=== PATIENT | female | born 1990 | race Two or more races ===

== ENCOUNTER 2023-08-20 20:16 | Emergency (ER) | payer OTHER, SELFPAY ==
[2023-08-20 20:33] VITALS: BP 131/70; PULSE 72; RESP 18; TEMP 36.6; O2SAT 99; BMI 26.6
[2023-08-20 20:53] LABS: MANUAL DIFF FLAG NO
[2023-08-20 20:59] LABS: UPreg QC Valid YES; Urine Pregnancy NEGATIVE (NEGATIVE)
[2023-08-20 21:07] LABS: Alanine Aminotransferase 8 U/L (0-31); Albumin Level 4.2 g/dL (3.5-5.0); Alkaline Phosphatase 47 U/L (39-117); Anion Gap 14 (12-20); Aspartate Amino Transferase 14 U/L (5-31); Bilirubin Total 0.7 mg/dL (0.0-1.0); Blood Urea Nitrogen 9 mg/dL (9-16); Calcium 9.4 mg/dL (8.4-10.2); Carbon Dioxide 25 mmol/L (22-29); Chloride 108 mmol/L (96-108); Creatinine Clr Calc Pharmacy 130.8; Estimated Glomerular Filt Rate > 60; Glucose Random 76 mg/dL (60-115); Potassium 3.6 mmol/L (3.3-5.1); Sodium 143 mmol/L (135-145); Total Protein 7.1 g/dL (6.5-8.0)
[2023-08-20 21:26] LABS: Appearance Urine Turbid; Color Urine Dark Yellow; Glucose Urine UA Negative (Negative); Leukocyte Esterase Urine Small (1+) (Negative); Nitrite Urine Negative (Negative); PH 6.5 (5.0-9.0); Specific Gravity - Urine >= 1.030 (1.005-1.025); UMIC TRIGGER UACC YES; Urine Blood Trace (Negative); Urine Ketones Trace mg/dL (Negative); Urine Protein Trace mg/dL (Neg-Trace)
[2023-08-20 21:32] LABS: Basophils Absolute Auto 0.1 X10*3/uL (0.0-0.2); Basophils Percent Auto 0.5 % (0-2); Eosinophils Absolute Auto 0.1 X10*3/uL (0.0-0.4); Eosinophils Percent Auto 0.8 % (0-4); Hematocrit 39.1 % (37.0-47.0); Hemoglobin 12.8 g/dl (12.0-16.0); Imm Gran Abs Auto 0.01 X10*3/uL (0.00-0.03); Imm Gran Pct Auto 0.1 % (0.0-0.4); Lymphocytes Absolute Auto 3.5 X10*3/uL (1.2-4.9); Mean Corpuscular HGB Conc 32.7 g/dl (31.0-35.0); Mean Corpuscular Hemoglobin 27.3 pg (27.0-33.0); Mean Corpuscular Volume 83.4 fL (80.0-98.0); Mean Platelet Volume 9.1 fL (9.4-12.3); Monocytes Absolute Auto 0.6 X10*3/uL (0.1-1.2); Monocytes Percent Auto 5.7 % (2-11); Neutrophils Absolute Auto 5.5 x10*3/uL (2.0-8.3); Neutrophils Percent Auto 56.9 % (45-73); Platelet Count 307 X10*3/uL (160-400); Red Blood Count 4.69 X10*6/uL (4.20-5.50); Red Cell Distribution Width 14.4 % (11.0-16.0); White Blood Count 9.7 X10*3/uL (4.8-10.8)
[2023-08-20 21:52] LABS: Bacteria Urine 2+ (None Seen); Calcium Oxalate Crystals Urine Present; Hyaline Casts Urine 0-2 /LPF (0-2); UACC Culture Trigger YES
--- OUTSIDE RECORDS SUMMARY | 2023-08-20 22:26 | XMS_ITS | Continuity of Care Document ---
Author Name Unknown Organization [facility] e Medicine Address Unknown Care Team Providers Care Field Gauger Name Role Phone Not on Staff, PCP Primary Care Physician Unavail able [place] [facility] [place] 12/22/21 - 01/21/22 [facility] Reproductive Medicine Attending Physician: Leeann Ward Admitting Physician: AdmtrLeeann Referring Physician: Admtr, Ar8 Allergies, Adverse Reactions, Alerts Substance Reaction Severity Status Latex Active Medications ibuprofen 800 mg oral tablet 800 mg, 1, tablet, By Mouth, 3 times a day, # 30 supp, Refills 0, Tot. Refills 0, Maintenance, 05/11/19 23:49:28 EST, Route to Pharmacy Electronically, NCPDP_[id number], [facility] [address] [facility] Start Date: 05/11/19 Status: Ordered oxyCODONE 5 mg oral tablet 5 mg, 1, tablet, By Mouth, Every 6 hours, PRN, # 10 tablet, Refills 0, Tot. Refills 0, Maintenance,for pain, 05/11/19 23:49:19 EST, Route to Pharmacy Electronically, NCPDP_ID-[id number], [facility] - [address], Partial fill upon patient request Start Date: 05/11/19 Status: Ordered simethicone 80 mg oral tablet 1 tablet = 80 mg, Chew, 3 times a day after meals and bedtime, PRN for gas, # 40 tablet, 0 Refills,Maintenance, 05/11/19 23:49:28 EST, Tablet Start Date: 05/11/19 Status: Ordered Tylenol 325 mg oral tablet 325 mg, 1, tablet, By Mouth, Every 4 hours, PRN, # 30 tablet, Refills 0, Tot. Refills 0, Maintenance, for pain, 05/11/19 23:49:19 EST, Route to Pharmacy Electronically, NCPDP_[id number], [facility] - [address] [place] [address] Start Date: 05/11/19 Status: Ordered Tylenol Extra Strength 500 mg oral tablet 2 tablet = 1,000 mg, By Mouth, Every 6 hours, 0 Refills, Maintenance, 05/11/19 15:56:33 EST Start Date: 05/11/19 Status: Ordered Problem List Condition Effective Dates Status Health Status Inform ant Anxiety(Confirmed) Active Asthma(Confirmed) Active Bipolar affective disorder(Confirmed) Active Depression(Confirmed) Active Social History Social History Type Response Smoking Status Former smoker, quit more than 30 days ago entered on: 05/09/19 Sex
--- OUTSIDE RECORDS SUMMARY | 2023-08-20 22:26 | XMS_ITS | Continuity of Care Document ---
Author Name Unknown Organization [facility] e Medicine Address Unknown Care Team Providers Care Cash Accounting Clerk Name Role Phone Not on Staff, PCP Primary Care Physician Unavail able Encounter [facility] [place] Date(s): 09/23/21 - 01/21/22 [facility] Reproductive Medicine Attending Physician: Margaret Nguyen MD Referring Physician: Scotty YAP, Miguel A Esquivel Allergies, Adverse Reactions, Alerts Substance Reaction Severity Status Latex Active Medications ibuprofen 800 mg oral tablet 800 mg, 1, tablet, By Mouth, 3 times a day, # 30 supp, Refills 0, Tot. Refills 0, Maintenance, 05/11/19 23:49:28 EST, Route to Pharmacy Electronically, NCPDP_[id number], [facility] - [address] Start Date: 05/11/19 Status: Ordered oxyCODONE 5 mg oral tablet 5 mg, 1, tablet, By Mouth, Every 6 hours, PRN, # 10 tablet, Refills 0, Tot. Refills 0, Maintenance,for pain, 05/11/19 23:49:19 EST, Route to Pharmacy Electronically, NCPDP_ID-[id number], [facility] - [address], Partial fill upon patient request Start [...] 05/11/19 23:49:19 EST, Route to Pharmacy Electronically, NCPDP_[id number], [facility] [address] [facility] Start Date: 05/11/19 Status: Ordered Tylenol Extra [...]
--- OUTSIDE RECORDS SUMMARY | 2023-08-20 22:26 | XMS_ITS | Continuity of Care Document ---
Author Name Unknown Organization [facility] e Medicine Address Unknown Care Team Providers Care Kids Activities Coach Name Role Phone Not on Staff, PCP Primary Care Physician Unavail able [place] [facility] [place] 10/08/21 [facility] Reproductive Medicine Attending Physician: Margaret Nguyen MD Referring Physician: Miguel A Fajardo MD Allergies, Adverse Reactions, Alerts Substance Reaction Severity Status Latex Active Medications ibuprofen 800 mg oral tablet 800 mg, 1, tablet, By Mouth, 3 times a day, # 30 supp, Refills 0, Tot. Refills 0, Maintenance, 05/11/19 23:49:28 EST, Route to Pharmacy Electronically, NCPDP_ID-[id number], [facility] - [address] Start Date: 05/11/19 Status: Ordered oxyCODONE 5 mg oral tablet 5 mg, 1, tablet, By Mouth, Every 6 hours, PRN, # 10 tablet, Refills 0, Tot. Refills 0, Maintenance,for pain, 05/11/19 23:49:19 EST, Route to Pharmacy Electronically, NCPDP_ID-[id number], [facility] - [address], Partial fill upon patient request Start [...] 05/11/19 23:49:19 EST, Route to Pharmacy Electronically, NCPDP_ID-[id number], [facility] [address] [facility] Start Date: 05/11/19 Status: Ordered Tylenol [...]
--- OUTSIDE RECORDS SUMMARY | 2023-08-20 22:26 | XMS_ITS | Continuity of Care Document ---
Author Name Unknown Organization [facility] ter Address [address] [place] [address]- Care Team Providers Care Philosophy And Religion Instructor Name Role Phone Keyshawn Brown MD Primary Care Physician [place] [facility] [place](s): 07/23/19 - 07/30/[address] [address]- [facility] Attending Physician: Nayla Lara MD Allergies, Adverse Reactions, Alerts Substance Reaction Severity Status Latex Active Medications ibuprofen 800 mg oral tablet 800 mg, 1, tablet, By Mouth, 3 times a day, # 30 supp, Refills 0, Tot. Refills 0, Maintenance, 05/11/19 23:49:28 EST, Route to Pharmacy Electronically, NCPDP_[id number], [facility] [address] [facility] Start Date: 05/11/19 Status: Ordered oxyCODONE 5 mg oral tablet 5 mg, 1, tablet, By Mouth, Every 6 hours, PRN, # 10 tablet, Refills 0, Tot. Refills 0, Maintenance,for pain, 05/11/19 23:49:19 EST, Route to Pharmacy Electronically, NCPDP_ID-[id number], [facility] - [address] [place] [address] ST, Partial fill upon patient request Start [...] 05/11/19 23:49:19 EST, Route to Pharmacy Electronically, NCPDP_[id number], [facility] - [address] [place] [address] Start Date: 05/11/19 Status: Ordered Tylenol Extra [...]
--- OUTSIDE RECORDS SUMMARY | 2023-08-20 22:26 | XMS_ITS | Continuity of Care Document ---
Author Name Unknown Organization [facility] e Medicine Address [address] [place] [address]- Care Team Providers Care Silviculture Teacher Name Role Phone Nick YAP, Pedro Pena Primary Care Physician [id number] Date(s[facility] 10/25/22 - 01/24/23 [facility] Reproductive Medicine [address]th [address] [place] [address] Attending Physician: Not on Staff, Attending MD Referring Physician: Miguel A Fajardo MD Allergies, Adverse Reactions, Alerts Substance Reaction Severity Status Latex Active Medications ibuprofen 800 mg oral tablet 800 mg, 1, tablet, By Mouth, 3 times a day, # 30 supp, Refills 0, Tot. Refills 0, Maintenance, 05/11/19 23:49:28 EST, Route to Pharmacy Electronically, NCPDP_ID-[id number], [facility] - [address] Start Date: 05/11/19 Status: Ordered oxyCODONE 5 mg oral tablet 5 mg, 1, tablet, By Mouth, Every 6 hours, PRN, # 10 tablet, Refills 0, Tot. Refills 0, Maintenance,for pain, 05/11/19 23:49:19 EST, Route to Pharmacy Electronically, NCPDP_ID-[id number], [facility] - [address], Partial fill [...] 05/11/19 23:49:19 EST, Route to Pharmacy Electronically, NCPDP_[id number], [facility] [address] [facility] Start Date: 05/11/19 Status: Ordered Tylenol Extra Strength 500 mg oral tablet 2 tablet = 1,000 mg, By Mouth, Every 6 hours, 0 Refills, Maintenance, 05/11/19 15:56:33 EST Start Date: 05/11/19 Status: Ordered Problem List Condition Confirmation Course Effective Dates Status Health St atus Informant Anxiety Confirmed Active Asthma Confirmed Active Bipolar affective disorder Confirmed Active Depression Confirmed Active Social History Social History Type Response Smoking Status Former smoker, quit more than 30 days ago entered on: 05/09/19 Sex Patient Care team information Care Team Personnel Name: Pedro Romero MD Position: Reference Physician Member Role: PCP Address: Address: [address] [place] [address] [place], [place] [address] Name: Maria Del Rosario Skaggs RN Position: [facility] Nurse Member Role: Primary Care Nurse Care Team Related Persons Name: MARILEE PACHECO Address: home [address] [place] [address] Name: PRIYA IZAGUIRRE Address: home [address] [place] [address] Name: MATHEUS PEREZ Address: home [address] [place] [address]
--- OUTSIDE RECORDS SUMMARY | 2023-08-20 22:26 | XMS_ITS | Continuity of Care Document ---
Author Name Unknown Organization [facility] e Medicine Address [address] [facility] [address] [place] [address]- Care Team Providers Care Library Associate Name Role Phone Nick YAP, Pedro Pena Primary Care Physician [phone] [place] [facility] [place] - 01/24/23 [facility] Reproductive Medicine [address] [facility] [address] [place] [address] Attending Physician: Leeann Ward Admitting Physician: Leeann Ward Referring Physician: Leeann Ward Allergies, Adverse Reactions, Alerts Substance Reaction Severity Status Latex Active Medications ibuprofen 800 mg oral tablet 800 mg, 1, tablet, By Mouth, 3 times a day, # 30 supp, Refills 0, Tot. Refills 0, Maintenance, 05/11/19 23:49:28 EST, Route to Pharmacy Electronically, NCPDP_[id number], [facility] - [address] Start Date: 05/11/19 Status: Ordered oxyCODONE 5 mg oral tablet 5 mg, 1, tablet, By Mouth, Every 6 hours, PRN, # 10 tablet, Refills 0, Tot. Refills 0, Maintenance,for pain, 05/11/19 23:49:19 EST, Route to Pharmacy Electronically, NCPDP_ID-[id number], [facility] - [address], Partial fill [...] 05/11/19 23:49:19 EST, Route to Pharmacy Electronically, NCPDP_[id number], [facility] [address] Start Date: 05/11/19 Status: Ordered Tylenol Extra [...] Care team information Care Team Personnel Name: Nick YAP, Pedro Pena Position: Reference Physician Member Role: PCP Address: Address: [address] [place] [address] Medical [place], [place] [address] Name: Maria Del Rosario Skaggs RN Position: [facility] Nurse Member Role: Primary Care Nurse Care Team Related Persons Name: MARILEE PACHECO Address: home [address] [place] [address] Name: PRIYA IZAGUIRRE Address: home [address] [place] [address] Name: MATHEUS PEREZ Address: home [address] [place] [address]
== END 2023-08-20 23:36 | disposition left against medical advice (07) ==
PROVIDERS: Emergency Provider Emergency Medicine
DX: R10.31 Right lower quadrant pain (principal); Z79.899 Other long term (current) drug therapy
CPT/HCPCS: 36415; 80053; 81001; 81025; 85025; 87086; 99282; 99283

== ENCOUNTER 2023-09-28 11:04 | Emergency (ER) | payer OTHER, SELFPAY ==
--- NOTE | ~2023-09-28 | CT_ITS ---
EXAMINATION: CT ABDOMEN AND PELVIS WITHOUT CONTRAST CLINICAL INFORMATION: RLQ pain COMPARISON: Right lower quadrant ultrasound dated 07/09/2018 TECHNIQUE: Multidetector volumetric imaging was performed from the superior aspect of the liver through the pubic symphysis. Sagittal and coronal reformatted images were obtained on the technologist's workstation. This CT examination was performed using dose optimization techniques as appropriate, variously including the following: *Automated exposure control *Adjustment of mA and/or kV according to patient size (this includes techniques or standardized protocols for targeted exams where dose is matched to indication/reason for exam; i.e. extremities or head) *Use of iterative reconstruction technique DLP: 512 mGy-cm FINDINGS: LUNG BASES: The visualized lung bases are unremarkable. LIVER, GALLBLADDER, AND BILIARY TREE: The liver is normal in size, shape, and attenuation. No focal hepatic lesion or biliary ductal dilatation is present. The gallbladder is unremarkable with no evidence of radiopaque gallstones, gallbladder wall thickening, or obvious pericholecystic inflammatory changes. PANCREAS: Unremarkable. SPLEEN: Unremarkable. ADRENAL GLANDS: Unremarkable. KIDNEYS AND URETERS: The kidneys are normal in size, shape, and attenuation. No hydronephrosis, hydroureter, or calculi seen. No perinephric stranding. BLADDER: Unremarkable. GASTROINTESTINAL TRACT: Stomach, small bowel, and colon are normal in caliber. No bowel wall thickening or surrounding inflammatory changes. Appendix is normal. No intraperitoneal free fluid or free air. ABDOMINAL WALL: No significant hernia is appreciated. LYMPH NODES: Normal. VASCULAR: Unremarkable. PELVIC VISCERA: Within the right hemipelvis posteriorly, there is a 9.6 x 5.5 x 4 cm tubular fluid structure which likely corresponds to a hydrosalpinx,, measuring up to 4 cm in diameter. This was also present on the prior study from 2019, though increased in size from that time. The uterus and left adnexa are unremarkable. OSSEOUS STRUCTURES: Unremarkable. CT/CT abdomen pelvis wo IV con IMPRESSION: 1. A 9.6 cm tubular fluid structure in the right hemipelvis likely corresponds to a hydrosalpinx. This was also present on the prior study from 2019, though increased in size from that time. Consider correlation with ultrasound. 2. Otherwise, no acute intra-abdominal or intrapelvic abnormalities. Normal appendix.
--- NOTE | ~2023-09-28 | US_ITS ---
EXAMINATION: US PELVIS CLINICAL INFORMATION: Right hemipelvis mass on CT COMPARISON: CT from the same day, pelvic ultrasound 07/09/2018 TECHNIQUE: Ultrasound of the pelvis is performed using both transabdominal and transvaginal transducers along with Doppler. Transvaginal imaging is performed due to inadequate visualization transabdominally. FINDINGS: The uterus measures 7.3 cm in length and 4.1 x 6.0 cm in AP and transverse dimensions. Endometrial stripe measures 0.6 cm in thickness. The right ovary measures 3.3 x 2.5 x 2.6 cm and appears unremarkable. The left ovary measures 2.8 x 2.1 x 2.7 cm and also appears unremarkable. There is an anechoic, tubular structure in the right adnexa measuring up to approximately 7.9 x 4.5 x 4.9 cm. A similar finding was also present on 07/09/2018 which measured up to 7.1 x 2.7 x 5.2 cm at that time. No free fluid is seen. US/US pelvic and transvaginal IMPRESSION: Anechoic, tubular structure in the right adnexa measuring up to approximately 7.9 cm, favored to represent hydrosalpinx. A similar finding was also present on 07/09/2018, which measured up to 7.1 cm at that time. Otherwise, no new acute findings identified.
[2023-09-28 11:09] VITALS: BP 120/78; PULSE 96; RESP 16; TEMP 36.7; O2SAT 99; BMI 26.2
--- NOTE | 2023-09-28 11:09 | ED.ABDPAIN ---
HPI - Abdominal Pain General Chief Complaint: Nausea/Vomiting/Diarrhea Stated Complaint: Abdominal Pain Time Seen by Provider: 09/28/23 11:15 Source: patient Mode of arrival: ambulatory Limitations: no limitations History of Present Illness HPI narrative: 32 yo female here w/ abd pain, vomiting, diarrhea, x4d. No history of recent travel, no sick contact exposure, no exposure to bad food. abd pain to epigastric region, burning in sensation. pain began before vomiting/ diarrhea. No sick contacts. did not receive flu shot this year. denies chance of . denies etoh consumption. denies fever/chills, constipation, hematemesis, melena, hematochezia, flank pain, dysuria, hematuria. - Basic labs and viral serology ordered. Related Data Previous Rx's Medication Instructions Recorded ondansetron 4 mg disintegrating 4 mg PO Q8-12H PRN nausea and 09/28/23 tablet vomiting #10 tabs Allergies Allergy/AdvReac Type Severity Reaction Status Date / Time latex [LATEX] Allergy Unknown ITCHING, Verified 09/28/23 11:09 RASH Review of Systems Review of Systems All other systems are reviewed and are negative Constitutional: Reports as per HPI and Reports no additional constitutional complaints Eyes: Reports as per HPI and Reports no additional eye complaints Reports system reviewed and no additional complaints, except as documented Cardiovascular: Reports as per HPI and Reports no additional cardiovascular complaints Respiratory: Reports as per HPI and Reports no additional respiratory complaints Gastrointestinal: Reports as per HPI and Reports no additional gastrointestinal complaints Genitourinary: Reports no additional female genitourinary complaints Musculoskeletal: Reports no additional musculoskeletal complaints Skin/Breast: Reports system reviewed and no additional complaints, except as docu Psychiatric: Reports no additional psychiatric complaints Endocrine: Reports no additional endocrine complaints Hematologic/Lymphatic: Reports no additional hematologic/lymphatic complaints Allergic/Immunologic: Reports no additional allergic/immunologic complaints Reports system reviewed and no additional complaints, except as documented and Reports Abnormal speech present [facility] Social History Social History Smoked in Last 30 Days: No Use of substances other than those prescribed or required for medical reasons: No Advance Directives: No Physical Exam ED Vital Signs: Vital Signs - 24 hr 09/28/23 11:09 09/28/23 11:36 09/28/23 15:26 Temperature 98.1 F 97.9 F 98.3 F Pulse Rate 96 77 66 Respiratory Rate 16 18 20 Blood Pressure 120/78 107/68 Pulse Oximetry 99 99 99 Oxygen Delivery Method Room Air Room Air Room Air BMI result Body Mass Index 26.2 Vital signs have been reviewed and appear to be correct. Blood pressure elevated. Heart rate normal. Respiratory rate normal. Temperature normal. Oxygen saturation normal. Appearance: Alert. Oriented X3. No acute distress. Head: Normal external exam. Normocephalic. Atraumatic. No Broussard signs noted. No raccoon eyes noted Eyes: PERRLA. EOMI. Conjunctiva and sclera normal. Eyelids normal. ENT: TM's Normal. Pharynx normal. Uvula midline. Moist mucous membranes. No trismus noted. No drooling noted. No muffled voice noted. Neck: Normal inspection. Neck supple. FROM. No adenopathy. Thyroid Normal. No meningeal signs. No neck mass noted. CVS: Normal heart rate and rhythm. Heart sound normal. No murmurs noted. Pulses normal throughout. Respiratory: No respiratory distress. Painless inspiration. Breath sounds normal. No wheezes/rales/rhonchi noted. Chest nontender. No accessory muscle usage noted or decreased air movement noted. Abdomen: Soft , mild right LQ /Suprapubic tenderness, no guarding, no rebound tenderness.Bowel sounds normal in all 4 quadrants. No distention noted. No organomegaly noted. No visible injury noted. Back: No CVA tenderness. Full range of motion noted. Skin: Skin warm and dry. Normal skin color. Normal skin turgor. No rashes/lesions/lacerations noted. Extremities: No lower extremity edema. Extremities exhibit normal range of motion. Extremities nontender. Neuro: Oriented X 3. Cranial nerve exam: II-XII are grossly intact No motor deficit. No sensory deficit. Reflexes normal. Course Course Course Narrative: RME:?32 yo female here w/ abd pain, vomiting, diarrhea, x4d. abd pain to epigastric region, burning in sensation. pain began before vomiting/ diarrhea. No sick contacts. did not receive flu shot this year. denies chance of . denies etoh consumption. denies fever/chills, constipation, hematemesis, melena, hematochezia, flank pain, dysuria, hematuria. - Basic labs and viral serology ordered. Full HPI, ROS and PE to be performed by the primary ED provider. Reevaluation(s) Reevaluation #1: 4 days of abdominal pain, N, V, and D. CT of the abdomen pelvis is revealing hydrosalpinx awaiting for pelvic ultrasound, signed out to Dr. Mancuso to check on result I expect patient to be discharged If able to tolerate p.o. intake. Time: 16:07 Medical Decision Making Differential Diagnosis Differential Diagnoses: The differential diagnosis associated with the presentation includes ( Acute appendicitis, colitis, pancreatitis, acute cholecystitis, diverticulitis, , UTI, pyelonephritis, kidney stones, severe anemia, electrolyte derangement.) Admission/Observation Consideration of admission/observation: Escalation of care including admission/observation considered Lab Data MDM Lab Attestation statement: I reviewed the patient's lab results. 09/28/23 11:27 09/28/23 11:27 Labs: Lab Results 09/28/23 09/28/23 Range/Units 11:27 15:25 WBC 5.1 (4.8-10.8) X10*3/uL RBC 5.06 (4.20-5.50) X10*6/uL Hgb 13.8 (12.0-16.0) g/dl Hct 42.1 (37.0-47.0) % MCV 83.2 (80.0-98.0) fL MCH 27.3 (27.0-33.0) pg MCHC 32.8 (31.0-35.0) g/dl RDW 14.2 (11.0-16.0) % Plt Count 258 (160-400) X10*3/uL MPV 8.9 L (9.4-12.3) fL Immature Gran % (Auto) 0.2 (0.0-0.4) % Neut % (Auto) 61.7 (45-73) % Lymph % (Auto) 26.7 (20-40) % [place] % (Auto) 9.6 (2-11) % Eos % (Auto) 0.8 (0-4) % Baso % (Auto) 1.0 (0-2) % Lymph # (Auto) 1.4 (1.2-4.9) X10*3/uL [place] # (Auto) 0.5 (0.1-1.2) X10*3/uL Eos # (Auto) 0.0 (0.0-0.4) X10*3/uL Baso # (Auto) 0.1 (0.0-0.2) X10*3/uL Abs Immat Gran (auto) 0.01 (0.00-0.03) X10*3/uL Absolute Neuts (auto) 3.1 (2.0-8.3) x10*3/uL Absolute Nucleated RBC 0.000 (0.0-0.012) X10*3/uL Nucleated RBC % (auto) 0.0 (0.0-0.2) /100WBC Sodium 143 (135-145) mmol/L Potassium 3.6 (3.3-5.1) mmol/L Chloride 109 H (96-108) mmol/L Carbon Dioxide 25 (22-29) mmol/L Anion Gap 13 (12-20) BUN 10 (9-16) mg/dL Creatinine 0.66 (0.5-1.4) mg/dL Estim Creat Clear Calc 127.9 Estimated GFR > 60 Random Glucose 87 (60-115) mg/dL Calcium 9.5 (8.4-10.2) mg/dL Magnesium 2.0 (1.6-2.6) mg/dL Total Bilirubin 0.4 (0.0-1.0) mg/dL AST 19 (5-31) U/L ALT 14 (0-31) U/L Alkaline Phosphatase 57 (39-117) U/L Total Protein 7.3 (6.5-8.0) g/dL Albumin 4.2 (3.5-5.0) g/dL Lipase 8 (8-78) U/L Beta HCG, Quant < 2 mIU/mL Urine Color Yellow Urine Appearance Cloudy Urine pH 5.5 (5.0-9.0) Ur Specific [place] >= 1.030 H (1.005-1.025) Urine Protein Trace (Neg-Trace) mg/dL Urine Glucose (UA) Negative (Negative) mg/dL Urine Ketones 40 (Negative) mg/dL Urine Blood Moderate (2+) H (Negative) Urine Nitrite Negative (Negative) Ur Leukocyte Esterase Negative (Negative) Urine RBC 11-20 H (0-2) /HPF Urine WBC 0-5 (0-5) /HPF Ur Squamous Epith Cells 11-20 (0-2) /HPF Urine Bacteria 4+ (None Seen) Hyaline Casts 11-20 (0-2) /LPF Influenza Type A (PCR) NEGATIVE (Negative) Influenza Type B (PCR) NEGATIVE (Negative) RSV RNA Qual (PCR) NEGATIVE (Negative) SARS-CoV-2 RNA (RT-PCR) NEGATIVE (Negative) Independent Interpretation I performed an independent interpretation of an: CT Scan (abd and pelvis: 1. A 9.6 cm tubular fluid structure in the right hemipelvis likely corresponds to a hydrosalpinx. This was also present on the prior study from 2019, though increased in size from that time. Consider correlation with ultrasound. 2. Otherwise, no acute intra-abdominal or intrapelvic) Medications Administered Discontinued Medications Generic Name Dose Route Start Last Admin Trade Name Freq PRN Reason Stop Dose Admin Al Hydroxide/Mg Hydroxide 30 ml 09/28/23 11:47 09/28/23 12:02 Magnesium Hydrox/Alum Hydrox 30 Ml Oral.Susp PO 09/28/23 11:48 30 ml ONCE ONE Administration Sodium Chloride 1,000 mls @ 999 mls/hr 09/28/23 11:49 09/28/23 13:18 Ns IV 09/28/23 12:49 Infused .Q1H1M ONE Infusion Loperamide HCl 2 mg 09/28/23 11:47 09/28/23 12:01 Loperamide Hcl 2 Mg Capsule PO 09/28/23 11:48 2 mg ONCE ONE Administration Ondansetron HCl 4 mg 09/28/23 11:47 09/28/23 12:05 Ondansetron Hcl 4 Mg/2 Ml Vial IVPUSH 09/28/23 11:48 4 mg ONCE ONE Administration Discharge Plan Discharge Clinical Impression: Gastroenteritis, Pelvic pain Patient Disposition: Still a Patient Instructions: Gastroenteritis (ED) Prescriptions: New ondansetron 4 mg tablet,disintegrating 4 mg PO Q8-12H PRN (Reason: nausea and vomiting) Qty: 10 0RF Referrals: Nilton Dillon MD [Physician] -
[2023-09-28 11:32] LABS: MANUAL DIFF FLAG NO
[2023-09-28 11:34] LABS: Basophils Absolute Auto 0.1 X10*3/uL (0.0-0.2); Eosinophils Percent Auto 0.8 % (0-4); Hematocrit 42.1 % (37.0-47.0); Hemoglobin 13.8 g/dl (12.0-16.0); Imm Gran Abs Auto 0.01 X10*3/uL (0.00-0.03); Imm Gran Pct Auto 0.2 % (0.0-0.4); Lymphocytes Absolute Auto 1.4 X10*3/uL (1.2-4.9); Lymphocytes Percent Auto 26.7 % (20-40); Mean Corpuscular HGB Conc 32.8 g/dl (31.0-35.0); Mean Corpuscular Hemoglobin 27.3 pg (27.0-33.0); Mean Corpuscular Volume 83.2 fL (80.0-98.0); Mean Platelet Volume 8.9 fL (9.4-12.3); Monocytes Absolute Auto 0.5 X10*3/uL (0.1-1.2); Monocytes Percent Auto 9.6 % (2-11); Neutrophils Absolute Auto 3.1 x10*3/uL (2.0-8.3); Neutrophils Percent Auto 61.7 % (45-73); Platelet Count 258 X10*3/uL (160-400); Red Blood Count 5.06 X10*6/uL (4.20-5.50); Red Cell Distribution Width 14.2 % (11.0-16.0); White Blood Count 5.1 X10*3/uL (4.8-10.8)
[2023-09-28 11:36] VITALS: BP 107/68; PULSE 77; RESP 18; TEMP 36.6; O2SAT 99
--- NOTE | 2023-09-28 11:50 | ED.NAVMDI ---
HPI - Nausea/Vomiting/Diarrhea General Chief complaint: Nausea/Vomiting/Diarrhea Stated complaint: Abdominal Pain Time Seen by Provider: 09/28/23 11:15 Source: patient Mode of arrival: ambulatory Limitations: no limitations History of Present Illness HPI Narrative: 32-year-old female presented to ED for evaluation of nausea, vomiting, nonbloody watery diarrhea, right-sided abdominal pain x5 days. Patient with good appetite but unable to keep fluids down due to severe diarrhea and nausea with vomiting, declined any exposure to bad food or recent travel, no sick contacts. Periumbilical and right lower quadrant abdominal pain that started 5 days ago. No fever, no chills, no painful urination, no frequent urination, no blood in the urine, sexually active unsure if she is , no vaginal discharge or bleeding. Related Data Previous Rx's Medication Instructions Recorded ondansetron 4 mg disintegrating 4 mg PO Q8-12H PRN nausea and 09/28/23 tablet vomiting #10 tabs Allergies Allergy/AdvReac Type Severity Reaction Status Date / Time latex [LATEX] Allergy Unknown ITCHING, Verified 09/28/23 11:09 RASH Review of Systems Review of Systems: All other systems are reviewed and are negative Constitutional: Reports as per HPI and Reports no additional constitutional complaints Eyes: Reports as per HPI and Reports no additional eye complaints Reports system reviewed and no additional complaints, except as documented Cardiovascular: Reports as per HPI and Reports no additional cardiovascular complaints Respiratory: Reports as per HPI and Reports no additional respiratory complaints Gastrointestinal: Reports as per HPI and Reports no additional gastrointestinal complaints Genitourinary: Reports no additional female genitourinary complaints Musculoskeletal: Reports no additional musculoskeletal complaints Skin/Breast: Reports system reviewed and no additional complaints, except as docu Psychiatric: Reports no additional psychiatric complaints Endocrine: Reports no additional endocrine complaints Hematologic/Lymphatic: Reports no additional hematologic/lymphatic complaints Allergic/Immunologic: Reports no additional allergic/immunologic complaints Reports system reviewed and no additional complaints, except as documented and Reports Abnormal speech present [facility] Social History Social History Smoked in Last 30 Days: No Use of substances other than those prescribed or required for medical reasons: No Advance Directives: No Physical Exam Vital Signs: Vital Signs: Last Vital Signs Temp 98.4 F 09/28/23 17:49 Pulse 57 09/28/23 17:49 Resp 16 09/28/23 17:49 BP 107/51 L 09/28/23 17:49 Pulse Ox 100 09/28/23 17:49 O2 Del Method Room Air 09/28/23 17:49 BMI result Body Mass Index 26.2 Vital signs have been reviewed and appear to be correct. Blood pressure elevated. Heart rate normal. Respiratory rate normal. Temperature normal. Oxygen saturation normal. Appearance: Alert. Oriented X3. No acute distress. Head: Normal external exam. Normocephalic. Atraumatic. No Broussard signs noted. No raccoon eyes noted Eyes: PERRLA. EOMI. Conjunctiva and sclera normal. Eyelids normal. ENT: TM's Normal. Pharynx normal. Uvula midline. Moist mucous membranes. No trismus noted. No drooling noted. No muffled voice noted. Neck: Normal inspection. Neck supple. FROM. No adenopathy. Thyroid Normal. No meningeal signs. No neck mass noted. CVS: Normal heart rate and rhythm. Heart sound normal. No murmurs noted. Pulses normal throughout. Respiratory: No respiratory distress. Painless inspiration. Breath sounds normal. No wheezes/rales/rhonchi noted. Chest nontender. No accessory muscle usage noted or decreased air movement noted. Abdomen: Soft , RLQ tenderness to deep palpation, no rebound tenderness, no guarding Bowel sounds normal in all 4 quadrants. No distention noted. No organomegaly noted. No visible injury noted. Back: No CVA tenderness. Full range of motion noted. Skin: Skin warm and dry. Normal skin color. Normal skin turgor. No rashes/lesions/lacerations noted. Extremities: No lower extremity edema. Extremities exhibit normal range of motion. Extremities nontender. Neuro: Oriented X 3. Cranial nerve exam: II-XII are grossly intact No motor deficit. No sensory deficit. Reflexes normal. Medications Administered Discontinued Medications Generic Name Dose Route Start Last Admin Trade Name Freq PRN Reason Stop Dose Admin Al Hydroxide/Mg Hydroxide 30 ml 09/28/23 11:47 09/28/23 12:02 Magnesium Hydrox/Alum Hydrox 30 Ml Oral.Susp PO 09/28/23 11:48 30 ml ONCE ONE Administration Sodium Chloride 1,000 mls @ 999 mls/hr 09/28/23 11:49 09/28/23 13:18 Ns IV 09/28/23 12:49 Infused .Q1H1M ONE Infusion Loperamide HCl 2 mg 09/28/23 11:47 09/28/23 12:01 Loperamide Hcl 2 Mg Capsule PO 09/28/23 11:48 2 mg ONCE ONE Administration Ondansetron HCl 4 mg 09/28/23 11:47 09/28/23 12:05 Ondansetron Hcl 4 Mg/2 Ml Vial IVPUSH 09/28/23 11:48 4 mg ONCE ONE Administration Medical Decision Making Differential Diagnosis Differential Diagnoses: The differential diagnosis associated with the presentation includes ( ovarian torsion, ovarian cyst, acute appendicitis, acute colitis, gastroenteritis, acute diverticulitis) Admission/Observation Consideration of admission/observation: Escalation of care including admission/observation considered Lab Data MDM Lab Attestation statement: I reviewed the patient's lab results. 09/28/23 11:27 09/28/23 11:27 Labs: Lab Results 09/28/23 09/28/23 Range/Units 11:27 15:25 WBC 5.1 (4.8-10.8) X10*3/uL RBC 5.06 (4.20-5.50) X10*6/uL Hgb 13.8 (12.0-16.0) g/dl Hct 42.1 (37.0-47.0) % MCV 83.2 (80.0-98.0) fL MCH 27.3 (27.0-33.0) pg MCHC 32.8 (31.0-35.0) g/dl RDW 14.2 (11.0-16.0) % Plt Count 258 (160-400) X10*3/uL MPV 8.9 L (9.4-12.3) fL Immature Gran % (Auto) 0.2 (0.0-0.4) % Neut % (Auto) 61.7 (45-73) % Lymph % (Auto) 26.7 (20-40) % [place] % (Auto) 9.6 (2-11) % Eos % (Auto) 0.8 (0-4) % Baso % (Auto) 1.0 (0-2) % Lymph # (Auto) 1.4 (1.2-4.9) X10*3/uL [place] # (Auto) 0.5 (0.1-1.2) X10*3/uL Eos # (Auto) 0.0 (0.0-0.4) X10*3/uL Baso # (Auto) 0.1 (0.0-0.2) X10*3/uL Abs Immat Gran (auto) 0.01 (0.00-0.03) X10*3/uL Absolute Neuts (auto) 3.1 (2.0-8.3) x10*3/uL Absolute Nucleated RBC 0.000 (0.0-0.012) X10*3/uL Nucleated RBC % (auto) 0.0 (0.0-0.2) /100WBC Sodium 143 (135-145) mmol/L Potassium 3.6 (3.3-5.1) mmol/L Chloride 109 H (96-108) mmol/L Carbon Dioxide 25 (22-29) mmol/L Anion Gap 13 (12-20) BUN 10 (9-16) mg/dL Creatinine 0.66 (0.5-1.4) mg/dL Estim Creat Clear Calc 127.9 Estimated GFR > 60 Random Glucose 87 (60-115) mg/dL Calcium 9.5 (8.4-10.2) mg/dL Magnesium 2.0 (1.6-2.6) mg/dL Total Bilirubin 0.4 (0.0-1.0) mg/dL AST 19 (5-31) U/L ALT 14 (0-31) U/L Alkaline Phosphatase 57 (39-117) U/L Total Protein 7.3 (6.5-8.0) g/dL Albumin 4.2 (3.5-5.0) g/dL Lipase 8 (8-78) U/L Beta HCG, Quant < 2 mIU/mL Urine Color Yellow Urine Appearance Cloudy Urine pH 5.5 (5.0-9.0) Ur Specific [place] >= 1.030 H (1.005-1.025) Urine Protein Trace (Neg-Trace) mg/dL Urine Glucose (UA) Negative (Negative) mg/dL Urine Ketones 40 (Negative) mg/dL Urine Blood Moderate (2+) H (Negative) Urine Nitrite Negative (Negative) Ur Leukocyte Esterase Negative (Negative) Urine RBC 11-20 H (0-2) /HPF Urine WBC 0-5 (0-5) /HPF Ur Squamous Epith Cells 11-20 (0-2) /HPF Urine Bacteria 4+ (None Seen) Hyaline Casts 11-20 (0-2) /LPF Influenza Type A (PCR) NEGATIVE (Negative) Influenza Type B (PCR) NEGATIVE (Negative) RSV RNA Qual (PCR) NEGATIVE (Negative) SARS-CoV-2 RNA (RT-PCR) NEGATIVE (Negative) Independent Interpretation I performed an independent interpretation of an: Ultrasound (1. A 9.6 cm tubular fluid structure in the right hemipelvis likely corresponds to a hydrosalpinx. This was also present on the prior study from 2019, though increased in size from that time. Consider correlation with ultrasound. 2. Otherwise, no acute intra-abdominal or intrapelvic abnormalities. ) and CT Scan (1. A 9.6 cm tubular fluid structure in the right hemipelvis likely corresponds to a hydrosalpinx. This was also present on the prior study from 2018, though increased in size from that time. Consider correlation with ultrasound. 2. Otherwise, no acute intra-abdominal or intrapelvic abnormalities. ) Radiology Impression Discussion of test interpretation with radiology: I have reviewed the radiologist's reading. Discharge Plan Discharge Clinical Impression: Gastroenteritis, Pelvic pain Patient Disposition: Still a Patient Instructions: Gastroenteritis (ED) Prescriptions: New ondansetron 4 mg tablet,disintegrating 4 mg PO Q8-12H PRN (Reason: nausea and vomiting) Qty: 10 0RF Referrals: Nilton Dillon MD [Physician] - Interventions: ED Discharge Assessment Last Done: 09/28/23 17:49 Discharge Date/Time: 09/28/23 17:50
[2023-09-28 11:57] LABS: Alanine Aminotransferase 14 U/L (0-31); Albumin Level 4.2 g/dL (3.5-5.0); Alkaline Phosphatase 57 U/L (39-117); Anion Gap 13 (12-20); Aspartate Amino Transferase 19 U/L (5-31); Bilirubin Total 0.4 mg/dL (0.0-1.0); Blood Urea Nitrogen 10 mg/dL (9-16); Calcium 9.5 mg/dL (8.4-10.2); Carbon Dioxide 25 mmol/L (22-29); Chloride 109 mmol/L (96-108); Creatinine Clr Calc Pharmacy 127.9; Estimated Glomerular Filt Rate > 60; Glucose Random 87 mg/dL (60-115); HCG Quantitative < 2 mIU/mL; Lipase 8 U/L (8-78); Potassium 3.6 mmol/L (3.3-5.1); Sodium 143 mmol/L (135-145); Total Protein 7.3 g/dL (6.5-8.0)
[2023-09-28] MEDS: Loperamide HCl 2 MG CAPSULE PO (12:01)
[2023-09-28] MEDS: Magnesium Hydrox/Alum Hydrox 30 ML ORAL.SUSP PO (12:02)
[2023-09-28] MEDS: 0.9 % Sodium Chloride 1,000 ML 999 ML IV (12:05)
[2023-09-28] MEDS: ondansetron HCL 4 MG/2 ML VIAL IVPUSH (12:05)
[2023-09-28 12:10] LABS: Influenza A PCR NEGATIVE (Negative); Influenza B PCR NEGATIVE (Negative); Resp Syncy Virus RNA Qual PCR NEGATIVE (Negative); SARS COV2 PCR INHOUSE NEGATIVE (Negative)
[2023-09-28 15:26] VITALS: PULSE 66; RESP 20; TEMP 36.8; O2SAT 99
[2023-09-28 15:34] LABS: Appearance Urine Cloudy; Color Urine Yellow; Glucose Urine UA Negative (Negative); Leukocyte Esterase Urine Negative (Negative); Nitrite Urine Negative (Negative); PH 5.5 (5.0-9.0); Specific Gravity - Urine >= 1.030 (1.005-1.025); UMIC TRIGGER UACC YES; Urine Blood Moderate (2+) (Negative); Urine Ketones 40 mg/dL (Negative); Urine Protein Trace mg/dL (Neg-Trace)
[2023-09-28 15:55] LABS: Bacteria Urine 4+ (None Seen); WBC Urine 0-5 /HPF (0-5)
[2023-09-28 17:49] VITALS: BP 107/51; PULSE 57; RESP 16; TEMP 36.9; O2SAT 100
== END 2023-09-28 17:50 | disposition still patient (30) ==
PROVIDERS: Physician Assistant Medical; Emergency Provider Emergency Medicine
DX: K52.9 Noninfective gastroenteritis and colitis, unspecified (principal); R11.2 Nausea with vomiting, unspecified; R10.2 Pelvic and perineal pain; Z11.52 Encounter for screening for COVID-19; Z20.822 Contact with and (suspected) exposure to COVID-19; Z79.899 Other long term (current) drug therapy
CPT/HCPCS: 0241U; 36415; 74176; 76830; 76856; 80053; 81001; 83690; 83735; 84702; 85025; 96361; 96374; 99284; J2405